=== PATIENT | female | born 1985 | race Two or more races ===

== ENCOUNTER 2019-07-31 10:24 | Emergency (ER) | payer OTHER ==
[~2019-07-31] VITALS: Ht 167.6 cm; Wt 107.7 kg
--- NOTE | 2019-07-31 11:24 | NUR ---
c/o mild abdominal discomfort and 1 medium size clot w/ small amt brown discharge. . call gurpreet garrido. to us. as
[2019-07-31] MEDS ORDERED: RHOGAM FROM BLOOD BANK 1 NOTE EA IM/IV ONE (12:30)
--- NOTE | 2019-07-31 12:52 | NUR ---
awaiting rhogam. pt aware of wait time. spoke w/ bb. as
[2019-07-31 14:00] VITALS: BP 141/70
== END 2019-07-31 14:28 | disposition home or self-care (01) ==
LOC: ED 11:04
DX: O20.0 Threatened abortion (principal); O24.419 Gestational diabetes mellitus in pregnancy, unspecified control; Z3A.01 Less than 8 weeks gestation of pregnancy
CPT/HCPCS: 36415; 76801; 86850; 86900; 96372; 99284; J2790

== ENCOUNTER 2020-02-28 23:47 | Outpatient (CLI) | payer OTHER ==
[~2020-02-28] VITALS: Ht 167.6 cm; Wt 115.0 kg
[2020-02-29 00:12] VITALS: BP 129/78
[2020-02-29 00:24] LABS: MICROSCOPIC INDICATED
[2020-02-29] MEDS ORDERED: PREN1TAB60 PO (00:28)
[2020-02-29] MEDS ORDERED: INSU100V8 SQ (00:28)
[2020-02-29] MEDS ORDERED: LEVO75TA5 PO (00:28)
[2020-02-29] MEDS ORDERED: INSU100C SQ-INSULIN (00:28)
== END 2020-02-29 01:00 | disposition home or self-care (01) ==
LOC: LDOP 23:47
PROVIDERS: ATTEND Obstetrics & Gynecology
DX: Z34.83 Encounter for supervision of other normal pregnancy, third trimester (principal); Z3A.37 37 weeks gestation of pregnancy
CPT/HCPCS: 59025; 81001; 87086

== ENCOUNTER 2020-03-05 11:43 | Inpatient (IN) | payer OTHER ==
[~2020-03-05] VITALS: Ht 168.9 cm; Wt 115.5 kg
[~2020-03-05 11:43] MED LIST: INSU100C SQ-INSULIN; INSU100V8 SQ; LEVO75TA5 PO; PREN1TAB60 PO
[2020-03-05] MEDS: LACTATED RINGERS 1,000 ML IV SCH (21:55)
[2020-03-05] MEDS ORDERED: METOCLOPRAMIDE 5 MG/ML, 2ML IVPush PRN (22:30)
[2020-03-05] MEDS ORDERED: PENICILLIN GK 5,000,000 UNITS in DEXTROSE 5% 100 ML IVPB ONE (22:30)
[2020-03-05] MEDS ORDERED: OXYTOCIN 30U/ 0.9% NaCL 500ML 500 ML IV PRN (22:30)
[2020-03-05] MEDS ORDERED: D5%-LACTATED RINGERS 1,000 ML IV SCH (22:30)
[2020-03-05] MEDS ORDERED: CALCIUM CARBONATE 500 MG TAB.CHEW PO PRN (22:30)
[2020-03-05] MEDS ORDERED: ALUMINUM/MAG/SIMETHICONE 30 ML UDC PO PRN (22:30)
[2020-03-05] MEDS ORDERED: FENTANYL PF 100 MCG/2ML IVPush PRN (22:30)
[2020-03-05] MEDS: PENICILLIN GK 2,500,000 UNITS in DEXTROSE 5% 100 ML IVPB SCH (22:30)
[2020-03-05] MEDS ORDERED: FENTANYL PF 100 MCG/2ML IV PRN (22:30)
[2020-03-05] MEDS ORDERED: MISOPROSTOL 25 MCG TABLET VG PRN (22:30)
[2020-03-05] MEDS ORDERED: TERBUTALINE 1 MG/ML, 1ML SQ PRN (22:30)
[2020-03-05] MEDS ORDERED: ONDANSETRON 2MG/ML, 2ML IVPush PRN (22:30)
[2020-03-05] MEDS ORDERED: DIPHENHYDRAMINE 50 MG/ML, 1ML IVPush ONE (22:30)
[2020-03-05] MEDS ORDERED: OXYTOCIN 30U/ 0.9% NaCL 500ML 500 ML IV SCH (22:30)
[2020-03-05] MEDS ORDERED: TERBUTALINE 1 MG/ML, 1ML IVPush PRN (22:30)
[2020-03-05] MEDS ORDERED: CHOL500045 PO (23:10)
[2020-03-05] MEDS ORDERED: FERR325T18 PO (23:10)
[2020-03-05] MEDS ORDERED: INSU100I11 SQ ×3 (23:10)
[2020-03-05] MEDS ORDERED: INSU100V8 SQ (23:10)
[2020-03-05 23:13] LABS: BASOPHILS % (AUTO) 0 % (0-1); EOSINOPHILS % (AUTO) 1 % (1-7); LYMPHOCYTES % (AUTO) 29 % (22-44); MEAN CORPUSCULAR HEMOGLOBIN 25.5 pg (27.0-34.8); MEAN CORPUSCULAR HGB CONC 32.6 g/dL (32.4-35.8); MEAN PLATELET VOLUME 9.3 fL (7.4-10.4); MONOCYTES % (AUTO) 6 % (2-9); NEUTROPHILS % (AUTO) 63 % (42-75); PLATELET COUNT 245 x10^3/uL (130-400); RED BLOOD COUNT 4.39 x10^6/uL (3.82-5.3); RED CELL DISTRIBUTION WIDTH 15.5 % (9.6-15.2)
[2020-03-05 23:17] LABS: MD NO
[2020-03-05] MEDS ORDERED: OXYTOCIN 30U/ 0.9% NaCL 500ML 500 ML ONE (23:20)
[2020-03-05] MEDS ORDERED: NEWBORN KIT ONE (23:21)
[2020-03-06] MEDS ORDERED: LIDOCAINE 1%, 20ML ONE (00:06)
[2020-03-06] MEDS ORDERED: MISOPROSTOL 200 MCG TABLET ONE (00:06)
[2020-03-06] MEDS ORDERED: TERBUTALINE 1 MG/ML, 1ML ONE (00:06)
[2020-03-06] MEDS: PENICILLIN GK 2,500,000 UNITS in DEXTROSE 5% 100 ML IVPB SCH ×2 (03:32→07:14)
[2020-03-06] MEDS ORDERED: ONDANSETRON 2MG/ML, 2ML ONE ×2 (05:20→11:41)
[2020-03-06] MEDS: LACTATED RINGERS 1,000 ML IV SCH (05:27)
[2020-03-06] MEDS ORDERED: FENTANYL PF 100 MCG/2ML ONE (05:59)
[2020-03-06] MEDS ORDERED: BUPIVACAINE 0.25% ONE (05:59)
[2020-03-06] MEDS ORDERED: FENTANYL/BUPIV./NS/PF 250 ML EPIDCONT ONE (05:59)
[2020-03-06] MEDS ORDERED: LACTATED RINGERS 1,000 ML IVBOLUS PRN (07:00)
[2020-03-06] MEDS ORDERED: LACTATED RINGERS 1,000 ML IV SCH (07:00)
[2020-03-06] MEDS ORDERED: ONDANSETRON 2MG/ML, 2ML IVPush PRN (07:00)
[2020-03-06] MEDS ORDERED: EPHEDRINE 50 MG/ML, 1ML IVPush PRN (07:00)
[2020-03-06] MEDS ORDERED: FENTANYL/BUPIV./NS/PF 250 ML EPIDCONT SCH (07:00)
[2020-03-06] MEDS: LEVOTHYROXINE 75 MCG TABLET PO SCH (07:15)
[2020-03-06 07:35] LABS: CREATININE,URINE RANDOM 86.9 mg/dL
[2020-03-06 07:50] LABS: ALANINE AMINOTRANSFERASE 19 U/L (12-78); ALBUMIN 2.4 g/dL (3.4-5.0); ANION GAP 6 mmol/L (5-15); CALCIUM 8.7 mg/dL (8.5-10.1); CHLORIDE 107 mmol/L (98-107); CREATININE 0.82 mg/dL (0.55-1.02)
[2020-03-06 07:52] LABS: ALKALINE PHOSPHATASE 115 U/L (45-117); BILIRUBIN,TOTAL 0.3 mg/dL (0.2-1.0); TOTAL PROTEIN 6.3 g/dL (6.4-8.2)
[2020-03-06 07:55] LABS: BASOPHILS % (AUTO) 1 % (0-1); EOSINOPHILS % (AUTO) 1 % (1-7); LYMPHOCYTES % (AUTO) 18 % (22-44); MEAN CORPUSCULAR HEMOGLOBIN 25.6 pg (27.0-34.8); MEAN CORPUSCULAR HGB CONC 32.4 g/dL (32.4-35.8); MEAN PLATELET VOLUME 9.2 fL (7.4-10.4); MONOCYTES % (AUTO) 5 % (2-9); NEUTROPHILS % (AUTO) 76 % (42-75); PLATELET COUNT 243 x10^3/uL (130-400); RED BLOOD COUNT 4.32 x10^6/uL (3.82-5.3); RED CELL DISTRIBUTION WIDTH 15.4 % (9.6-15.2)
[2020-03-06] MEDS ORDERED: LACTATED RINGERS 1,000 ML INTUTE PRN (08:00)
[2020-03-06 08:01] LABS: MD NO
[2020-03-06] MEDS ORDERED: MAGNESIUM HYDROXIDE 8%, 30ML UDC PO PRN (12:30)
[2020-03-06] MEDS ORDERED: ACETAMINOPHEN 325 MG TABLET PO PRN ×2 (12:30)
[2020-03-06] MEDS ORDERED: ONDANSETRON 2MG/ML, 2ML IV PRN (12:30)
[2020-03-06] MEDS ORDERED: RHOGAM FROM BLOOD BANK 1 NOTE EA IM/IV ONE (12:30)
[2020-03-06] MEDS ORDERED: DOCUSATE 100 MG CAPSULE PO PRN (12:30)
[2020-03-06] MEDS ORDERED: MISOPROSTOL 200 MCG TABLET PR PRN (12:30)
[2020-03-06] MEDS ORDERED: SIMETHICONE 80 MG CHEW TAB PO PRN (12:30)
[2020-03-06] MEDS ORDERED: DIPH,PERTUSS(ACELL),TET VAC/PF NC IM-VACC PRN (12:30)
[2020-03-06] MEDS ORDERED: OXYcodone/APAP 5/325MG TABLET PO PRN ×2 (12:30)
[2020-03-06] MEDS ORDERED: OXYTOCIN 30U/ 0.9% NaCL 500ML 500 ML ONE (13:16)
[2020-03-06] MEDS: OXYTOCIN 30U/ 0.9% NaCL 500ML 500 ML IV SCH ×2 (13:20→22:30)
[2020-03-06] MEDS ORDERED: DEXTROSE 47%, 15GM GEL ONE (14:22)
[2020-03-06 15:40] VITALS: BP 117/72
[2020-03-06] MEDS: IBUPROFEN 600 MG TABLET PO PRN (16:40)
[2020-03-06] MEDS: metFORMIN 500 MG TABLET PO SCH (17:16)
[2020-03-06 19:35] VITALS: BP 121/84
[2020-03-06 20:32] LABS: BASOPHILS % (AUTO) 0 % (0-1); EOSINOPHILS % (AUTO) 0 % (1-7); LYMPHOCYTES % (AUTO) 16 % (22-44); MEAN CORPUSCULAR HEMOGLOBIN 25.8 pg (27.0-34.8); MEAN CORPUSCULAR HGB CONC 32.8 g/dL (32.4-35.8); MEAN PLATELET VOLUME 8.7 fL (7.4-10.4); MONOCYTES % (AUTO) 5 % (2-9); NEUTROPHILS % (AUTO) 78 % (42-75); PLATELET COUNT 217 x10^3/uL (130-400); RED BLOOD COUNT 3.86 x10^6/uL (3.82-5.3); RED CELL DISTRIBUTION WIDTH 15.5 % (9.6-15.2)
[2020-03-06 20:33] LABS: MD NO
[2020-03-07 00:10] VITALS: BP 118/75
[2020-03-07] MEDS: IBUPROFEN 600 MG TABLET PO PRN ×2 (03:32→09:01)
[2020-03-07 04:00] VITALS: BP 122/74
[2020-03-07] MEDS: LEVOTHYROXINE 75 MCG TABLET PO SCH (06:05)
[2020-03-07] MEDS: metFORMIN 500 MG TABLET PO SCH ×2 (07:19→11:46)
[2020-03-07 07:50] VITALS: BP 119/78
[2020-03-07] MEDS ORDERED: PRENATAL VIT/IRON/FA 1 EACH TABLET PO SCH (09:00)
[2020-03-07 12:00] VITALS: BP 123/81
== END 2020-03-07 12:50 | disposition home or self-care (01) | DRG 807 ==
LOC: LDIP 22:12 → 2NW 03-06 15:14
PROVIDERS: ADMIT Obstetrics & Gynecology; ATTEND Obstetrics & Gynecology
PROC: 10E0XZZ Delivery of Products of Conception, External Approach (ICD-10-PCS; principal; 2020-03-06)
PROC: 0KQM0ZZ Repair Perineum Muscle, Open Approach (ICD-10-PCS; 2020-03-06)
PROC: 3E0R3BZ Introduction of Anesthetic Agent into Spinal Canal, Percutaneous Approach (ICD-10-PCS; 2020-03-06)
PROC: 00HU33Z Insertion of Infusion Device into Spinal Canal, Percutaneous Approach (ICD-10-PCS; 2020-03-06)
PROC: 3E0234Z Introduction of Serum, Toxoid and Vaccine into Muscle, Percutaneous Approach (ICD-10-PCS; 2020-03-07)
DX: O69.81X0 Labor and delivery complicated by cord around neck, without compression, not applicable or unspecified (principal); Z37.0 Single live birth; O24.92 Unspecified diabetes mellitus in childbirth; O99.824 Streptococcus B carrier state complicating childbirth; O99.284 Endocrine, nutritional and metabolic diseases complicating childbirth; E03.9 Hypothyroidism, unspecified; Z20.828 Contact with and (suspected) exposure to other viral communicable diseases; O70.1 Second degree perineal laceration during delivery; Z3A.38 38 weeks gestation of pregnancy; Z79.4 Long term (current) use of insulin
CPT/HCPCS: 36415; J7121; 80053; 82570; 82962; 84156; 84550; 85025; 85461; 86592; 86850; 86900; 87635; G0378; J2405; J2540; J2790; J2590; J3010; J7120